=== PATIENT | male | born 1955 | race Caucasian/White ===

== ENCOUNTER 2021-03-14 08:36 | Emergency (ER) | payer MEDICARE ==
[~2021-03-14] VITALS: Ht 175.3 cm; Wt 77.1 kg
[2021-03-14] MEDS ORDERED: CASIRIVIMAB/IMDEVIMAB 10 ML in SODIUM CHLORIDE 0.9% 100 ML IV ONE (08:45)
== END 2021-03-14 09:34 | disposition home or self-care (01) ==
LOC: ER 08:41
DX: R43.9 Unspecified disturbances of smell and taste (principal); U07.1 COVID-19; E11.9 Type 2 diabetes mellitus without complications
CPT/HCPCS: 99283